=== PATIENT | female | born 1940 | race Caucasian/White ===

== ENCOUNTER 2020-08-22 15:01 | Emergency (ER) | payer OTHER, MEDICARE ==
--- NOTE | 2020-08-22 16:15 | RAD REPORT ---
EXAM DESCRIPTION: CT - Head Brain Wo Cont - 08/22/2020 3:55 pm CLINICAL HISTORY: Headache status post fall COMPARISON: None TECHNIQUE: Computed axial tomography of the head was obtained. IV contrast was not requested. All CT scans are performed using dose optimization technique as appropriate and may include automated exposure control or mA/KV adjustment according to patient size. FINDINGS: An intracranial bleed is not seen . The ventricles are normal in caliber. No extra-axial fluid collection is noted. The basilar tip is bulbous Mild low-density areas within periventricular, deep and subcortical white matter likely represent isc hemic changes secondary to small vessel disease. Fluid within the sinuses/ mastoids is not seen. IMPRESSION: No acute intracranial abnormality is seen. If patient's symptoms persist MRI of the bra in would be recommended.
[2020-08-22] MEDS ORDERED: LIDOCAINE 1% W/EPI 1:100,000 MDV 20 ML VIAL ONE (18:32)
--- NOTE | 2020-08-22 19:15 | ER ---
Nurse's Notes [facility] Name: Marva Hyde Age: 80 yrs Sex: Female : 1940 Arrival Date: 08/22/2020 Time: 15:07 Bed 26 Private MD: Diagnosis: Laceration without foreign body of other part of head-right forehead Presentation: 08/22 15:08 Chief complaint: Patient states: "I tripped and fell and hit my head on the sidewalk jd3 and my glasses cut me pretty good.". Coronavirus screen: At this time, the client does not indicate any symptoms associated with coronavirus-19. Ebola Screen: Patient negative for fever greater than or equal to 101.5 degrees Fahrenheit, and additional compatible Ebola Virus Disease symptoms. Initial Sepsis Screen: Does the patient meet any 2 criteria? No. Patient's initial sepsis screen is negative. Does the patient have a suspected source of infection? No. Patient's initial sepsis screen is negative. Risk Assessment: Do you want to hurt yourself or someone else? Patient reports no desire to harm self or others. Note no LOC, no blood thinners. Onset of symptoms was August 22, 2020. 15:08 Method Of Arrival: Wheelchair jd3 15:08 Acuity: ARNULFO 3 jd3 Triage Assessment: 08/23 19:00 General: Appears in no apparent distress. Behavior is calm. iw Historical: - Allergies: 08/22 15:12 No Known Allergies; jd3 - Home Meds: 15:12 Atenolol Oral [Active]; irbesartan oral oral [Active]; pravastatin oral oral [Active]; jd3 amlodipine oral [Active]; Gemfibrozil Oral [Active]; - PMHx: 15:12 Hypertension; jd3 - PSHx: 15:12 None; jd3 - Immunization history:: Adult Immunizations up to date, Last tetanus immunization: < 5 years ago. - Social history:: Smoking status: Patient denies any tobacco usage or history of. Screenin:35 Abuse screen: Denies threats or abuse. Denies injuries from another. Nutritional iw screening: No deficits noted. Tuberculosis screening: No symptoms or risk factors identified. Fall Risk None identified. Assessment: 19:00 General: Appears Behavior is calm, cooperative. Pain: Complains of pain in right iw frontal sinus. Neuro: Level of Consciousness is awake, alert, obeys commands, Oriented to person, place, situation. Respiratory: Respiratory effort is even, unlabored, Respiratory pattern is regular. Derm: Skin is fragile, is thin. Musculoskeletal: Range of motion: intact in all extremities. Injury Description: Laceration sustained to right frontal sinus. Vital Signs: 15:13 BP 162 / 90; Pulse 70; Resp 15 S; Temp 98.6(TE); Pulse Ox 98% on R/A; Weight 72.57 kg jd3 (R); Height 5 ft. 6 in. (167.64 cm) (R); Pain 7/10; 15:13 Body Mass Index 25.82 (72.57 kg, 167.64 cm) jd3 ED Course: 15:07 Patient arrived in ED. rg4 15:09 Triage completed. jd3 15:13 Arm band placed on. jd3 15:55 CT Head Brain wo Cont In Process Unspecified. EDMS 17:59 Yissel Martell RN is Primary Nurse. iw 17:59 Chris Daugherty PA is PHCP. cp 17:59 Chris Trujillo MD is Attending Physician. cp 17:59 PHCP role handed off by Chris Daugherty PA jmm 17:59 Russell Hobbs PA is PHCP. [facility] 18:00 Chris Daugherty PA is PHCP. cp Administered Medications: 19:00 Drug: Lidocaine-Epinephrine -1%: (1:100,000) 10 ml {Note: medication administered by tamara REIS preprocedure.} Volume: 20 ml; Route: Infiltration; Outcome: 19:14 Discharge ordered by MD. cp 19:39 Patient left the ED. Signatures: Dispatcher [employer] EDMS Russell Hobbs PA PA jmm Williams, Irene, RN RN Chris Daugherty PA PA cp Garcia, Rubi 4 Anthony Renee RN RN jd3
--- NOTE | 2020-08-22 19:15 | EDPHYS ---
Physician Documentation [facility] Name: Marva Hyde Age: 80 yrs Sex: Female : 1940 Arrival Date: 08/22/2020 Time: 15:07 Bed 26 Private MD: ED Physician Chris Trujillo HPI: 08/22 18:11 This 80 yrs old Female presents to ER via Wheelchair with complaints of Fall cp Injury. 18:11 Details of fall: The patient fell from an upright position, while walking. Onset: The cp symptoms/episode began/occurred today. Associated injuries: The patient sustained injury to the head, laceration, of the left forehead, tenderness. 18:11 Patient reports tetanus vaccination is UTD. No LOC, denies syncope, denies chest pain. cp Historical: - Allergies: 15:12 No Known Allergies; jd3 - Home Meds: 15:12 Atenolol Oral [Active]; irbesartan oral oral [Active]; pravastatin oral oral [Active]; jd3 amlodipine oral [Active]; Gemfibrozil Oral [Active]; - PMHx: 15:12 Hypertension; jd3 - PSHx: 15:12 None; jd3 - Immunization history:: Adult Immunizations up to date, Last tetanus immunization: < 5 years ago. - Social history:: Smoking status: Patient denies any tobacco usage or history of. ROS: 18:20 Constitutional: Negative for body aches, chills, fever, poor PO intake. cp 18:20 Eyes: Negative for injury, pain, redness, and discharge. cp 18:20 Cardiovascular: Negative for chest pain. 18:20 Respiratory: Negative for cough, shortness of breath, wheezing. 18:20 Abdomen/GI: Negative for abdominal pain, nausea, vomiting, and diarrhea. 18:20 Back: Negative for pain at rest, pain with movement. 18:20 Skin: Positive for laceration(s), of the right forehead. 18:20 Neuro: Negative for altered mental status, dizziness, headache, loss of consciousness, syncope, weakness. 18:20 All other systems are negative. Exam: 18:25 Constitutional: The patient appears in no acute distress, alert, awake, cp non-diaphoretic, well developed, well nourished. 18:25 Head/face: Noted is a laceration(s), that is deep, of the right forehead, Sinus cp tenderness, that is mild, is located over the right frontal sinus. 18:25 Eyes: Periorbital structures: appear normal, Pupils: equal, round, and reactive to cp light and accomodation, Extraocular movements: intact throughout, Conjunctiva: normal, no exudate, no injection, Lids and lashes: appear normal, bilaterally. 18:25 ENT: External ear(s): are unremarkable, Ear canal(s): are normal, clear, TM's: dullness, bilaterally, Nose: is normal, Mouth: Lips: moist, Oral mucosa: moist, Posterior pharynx: Airway: no evidence of obstruction, patent. 18:25 Neck: C-spine: vertebral tenderness, is not appreciated, crepitus, is not appreciated, ROM/movement: is normal, is supple, without pain, no range of motions limitations. 18:25 Chest/axilla: Inspection: normal, Palpation: is normal, no crepitus, no tenderness. Vital Signs: 15:13 BP 162 / 90; Pulse 70; Resp 15 S; Temp 98.6(TE); Pulse Ox 98% on R/A; Weight 72.57 kg jd3 (R); Height 5 ft. 6 in. (167.64 cm) (R); Pain 7/10; 15:13 Body Mass Index 25.82 (72.57 kg, 167.64 cm) jd3 Laceration: 19:12 Wound Repair of 4cm ( 1.6in ) subcutaneous laceration to right forehead. Linear cp shaped.. Distal neuro/vascular/tendon intact. Anesthesia: Local anesthetic administered with 5 mls of 1% lidocaine w/ Epi. Wound prep: Simple cleansing with hibiclenz by me, Wound irrigation by pr. Skin closed with 8 6-0 Prolene using simple sutures and sterile technique. Dressed with Bacitracin, 4x4's. Patient tolerated well. MDM: 18:03 Patient medically screened. cp 19:15 Data reviewed: vital signs, nurses notes, radiologic studies, CT scan, and as a result, cp I will discharge patient. 19:15 Counseling: I had a detailed discussion with the patient and/or guardian regarding: the cp historical points, exam findings, and any diagnostic results supporting the discharge/admit diagnosis, radiology results, to return to the emergency department if symptoms worsen or persist or if there are any questions or concerns that arise at home. Response to treatment: the patient's symptoms have markedly improved after treatment. Special discussion: Based on the patient's history, exam and DX evaluation, there is no indication for emergent intervention or inpatient TX. It is understood by the patient/guardian that if the SXs persist or worsen they need to return immediately for re-evaluation. 08/22 15:26 Order name: CT Head Brain wo Cont; Complete Time: 17:59 jd3 08/22 18:08 Interpretation: Reviewed. cp 08/22 18:09 Order name: Dressing - Wound; Complete Time: 19:17 cp 08/22 18:09 Order name: Gloves, Sterile; Complete Time: 19:17 cp 08/22 18:09 Order name: Setup Suture Tray; Complete Time: 19:17 cp 08/22 18:15 Order name: Wound Care: please clean and irrigate wound; Complete Time: 19:17 cp 08/22 19:12 Order name: Wound dressing; Complete Time: 19:17 cp Administered Medications: 19:00 Drug: Lidocaine-Epinephrine -1%: (1:100,000) 10 ml {Note: medication administered by tamara REIS preprocedure.} Volume: 20 ml; Route: Infiltration; Disposition: 08/22/20 19:14 Discharged to Home. Impression: Laceration without foreign body of other part of head - right forehead. - Condition is Stable. - Discharge Instructions: Head Injury, Adult, Facial Laceration, Sutured Wound Care. - Medication Reconciliation Form, Thank You Letter, Antibiotic Education, Prescription Opioid Use form. - Follow up: Private Physician; When: 1 week; Reason: Staple/Suture removal. - Problem is new. - Symptoms have improved. Addendum: 08/24/2020 07:00 Co-signature as Attending Physician, Chris Trujillo MD I agree with the assessment and c bello plan of care. Signatures: Dispatcher [employer] Chris Ball MD MD cha Mickail, Joel, PA PA jmm Williams, Irene RN Chris Feliciano PA PA cp Davies, Jonathon, RN RN jd3 Corrections: (The following items were deleted from the chart) 08/22 19:39 19:14 08/22/2020 19:14 Discharged to Home. Impression: Laceration without foreign body iw of other part of head - right forehead. Condition is Stable. Forms are Medication Reconciliation Form, Thank You Letter, Antibiotic Education, Prescription Opioid Use. Follow up: Private Physician; When: 1 week; Reason: Staple/Suture removal. Problem is new. Symptoms have improved. cp 08/23 15:36 08/22 18:25 Head/Face: Normocephalic, atraumatic. cp cp 08/23 18:04 08/22 18:25 Head/Face: Normocephalic, atraumatic. cp cp
[2020-08-22 19:50] VITALS: BP 162/90; TEMP 98.6; O2SAT 98
== END 2020-08-22 19:39 | disposition home or self-care (01) ==
LOC: ER 15:01
PROC: 0HQ1XZZ Repair Face Skin, External Approach (ICD-10-PCS; principal; 2020-08-22)
DX: S01.81XA Laceration without foreign body of other part of head, initial encounter (principal); W19.XXXA Unspecified fall, initial encounter; I10 Essential (primary) hypertension
CPT/HCPCS: 70450; 99283

== ENCOUNTER 2020-08-29 14:58 | Emergency (ER) | payer OTHER, MEDICARE ==
--- NOTE | 2020-08-29 15:53 | EDPHYS ---
Physician Documentation [facility] Name: Marva Hyde Age: 80 yrs Sex: Female : 1940 Arrival Date: 08/29/2020 Time: 14:59 Bed 11 Private MD: Chris Jordan HPI: 08/29 15:44 This 80 yrs old Female presents to ER via Ambulatory with complaints of fariba Suture Removal. 15:44 The patient has sutures on the outer aspect of right eyebrow. Previous treatment: The fariba patient was initially treated 7 day(s) ago. Sutures/mookie progress: The patient has no c/o's. The wound is well-healing with no redness, swelling, discharge, or dehiscence reported. The patient has not experienced similar symptoms in the past. Historical: - Allergies: 15:04 No Known Allergies; ll1 - PMHx: 15:04 Hypertension; ll1 - PSHx: 15:04 None; ll1 - Immunization history:: Last tetanus immunization: up to date Flu vaccine is up to date. - Social history:: Smoking status: Patient denies any tobacco usage or history of. - Family history:: not pertinent. ROS: 15:44 Constitutional: Negative for fever, chills, and weight loss, Eyes: Negative for injury, fariba pain, redness, and discharge, ENT: Negative for injury, pain, and discharge, Neck: Negative for injury, pain, and swelling, Cardiovascular: Negative for chest pain, palpitations, and edema, Respiratory: Negative for shortness of breath, cough, wheezing, and pleuritic chest pain, Abdomen/GI: Negative for abdominal pain, nausea, vomiting, diarrhea, and constipation, Back: Negative for injury and pain, MS/Extremity: Negative for injury and deformity, Neuro: Negative for headache, weakness, numbness, tingling, and seizure, Psych: Negative for depression, anxiety, suicide ideation, homicidal ideation, and hallucinations, Allergy/Immunology: Negative for hives, rash, and allergies, Endocrine: Negative for neck swelling, polydipsia, polyuria, polyphagia, and marked weight changes. 15:44 Skin: Positive for laceration(s). Exam: 15:44 Constitutional: This is a well developed, well nourished patient who is awake, alert, fariba and in no acute distress. Eyes: Pupils equal round and reactive to light, extra-ocular motions intact. Lids and lashes normal. Conjunctiva and sclera are non-icteric and not injected. Cornea within normal limits. Periorbital areas with no swelling, redness, or edema. ENT: Nares patent. No nasal discharge, no septal abnormalities noted. Tympanic membranes are normal and external auditory canals are clear. Oropharynx with no redness, swelling, or masses, exudates, or evidence of obstruction, uvula midline. Mucous membranes moist. Neck: Trachea midline, no thyromegaly or masses palpated, and no cervical lymphadenopathy. Supple, full range of motion without nuchal rigidity, or vertebral point tenderness. No Meningismus. Chest/axilla: Normal chest wall appearance and motion. Nontender with no deformity. No lesions are appreciated. Cardiovascular: Regular rate and rhythm with a normal S1 and S2. No gallops, murmurs, or rubs. Normal PMI, no JVD. No pulse deficits. Respiratory: Lungs have equal breath sounds bilaterally, clear to auscultation and percussion. No rales, rhonchi or wheezes noted. No increased work of breathing, no retractions or nasal flaring. Abdomen/GI: Soft, non-tender, with normal bowel sounds. No distension or tympany. No guarding or rebound. No evidence of tenderness throughout. Back: No spinal tenderness. No costovertebral tenderness. Full range of motion. Skin: Warm, dry with normal turgor. Normal color with no rashes, no lesions, and no evidence of cellulitis. MS/ Extremity: Pulses equal, no cyanosis. Neurovascular intact. Full, normal range of motion. Neuro: Awake and alert, GCS 15, oriented to person, place, time, and situation. Cranial nerves II-XII grossly intact. Motor strength 5/5 in all extremities. Sensory grossly intact. Cerebellar exam normal. Normal gait. Psych: Awake, alert, with orientation to person, place and time. Behavior, mood, and affect are within normal limits. 15:44 Head/face: Noted is a laceration(s). Vital Signs: 15:02 BP 172 / 97; Pulse 66; Resp 16; Temp 98.0; Pulse Ox 95% on R/A; Pain 0/10; ll1 MDM: 15:08 Patient medically screened. fariba 15:50 Data reviewed: vital signs, nurses notes. Data interpreted: monitoring tech: not fariba applicable for this patient encounter. rate is 6 beats/min, Pulse oximetry: on is 95 %. Counseling: I had a detailed discussion with the patient and/or guardian regarding: the historical points, exam findings, and any diagnostic results supporting the discharge/admit diagnosis, the need for outpatient follow up, for definitive care, a family practitioner. Administered Medications: No medications were administered Disposition: 08/29/20 15:52 Discharged to Home. Impression: Encounter for removal of sutures. - Condition is Stable. - Discharge Instructions: Suture Removal, Care After. - Medication Reconciliation Form, Thank You Letter, Antibiotic Education, Prescription Opioid Use form. - Follow up: Private Physician; When: 2 - 3 days; Reason: Recheck today's complaints, Continuance of care, Re-evaluation by your physician. - Problem is new. - Symptoms have improved. Signatures: Chris Trujillo MD MD cha Lewis, Lynsay RN RN ll1 Corrections: (The following items were deleted from the chart) 15:56 15:52 08/29/2020 15:52 Discharged to Home. Impression: Encounter for removal of ll1 sutures. Condition is Stable. Forms are Medication Reconciliation Form, Thank You Letter, Antibiotic Education, Prescription Opioid Use. Follow up: Private Physician; When: 2 - 3 days; Reason: Recheck today's complaints, Continuance of care, Re-evaluation by your physician. Problem is new. Symptoms have improved. fariba
--- NOTE | 2020-08-29 15:53 | ER ---
Nurse's Notes [facility] Name: Marva Hyde Age: 80 yrs Sex: Female : 1940 Arrival Date: 08/29/2020 Time: 14:59 Bed 11 Private MD: Diagnosis: Encounter for removal of sutures Presentation: 08/29 15:02 Chief complaint: Patient states: Needs sutures removed from R eyebrow, placed here on ll1 08/22. No fever, redness, pain. Coronavirus screen: Client denies travel out of the [place] in the last 14 days. At this time, the client does not indicate any symptoms associated with coronavirus-19. Ebola Screen: Patient denies travel to an Ebola-affected area in the 21 days before illness onset. Initial Sepsis Screen: Does the patient meet any 2 criteria? No. Patient's initial sepsis screen is negative. Does the patient have a suspected source of infection? Yes: Skin breakdown/wound. Risk Assessment: Do you want to hurt yourself or someone else? Patient reports no desire to harm self or others. Onset of symptoms was August 22, 2020. 15:02 Method Of Arrival: Ambulatory ll1 15:02 Acuity: ARNULFO 5 ll1 Historical: - Allergies: 15:04 No Known Allergies; ll1 - PMHx: 15:04 Hypertension; ll1 - PSHx: 15:04 None; ll1 - Immunization history:: Last tetanus immunization: up to date Flu vaccine is up to date. - Social history:: Smoking status: Patient denies any tobacco usage or history of. - Family history:: not pertinent. Screenin:36 Abuse screen: Denies threats or abuse. Denies injuries from another. Nutritional ss screening: No deficits noted. Tuberculosis screening: Never had TB. Fall Risk None identified. Assessment: 15:36 General: Appears in no apparent distress. comfortable, Behavior is calm, cooperative. ss Pain: Denies pain. Neuro: Level of Consciousness is awake, alert, obeys commands, Oriented to person, place, time, situation, Speech is normal. Cardiovascular: Capillary refill < 3 seconds is brisk in bilateral fingers. Respiratory: Airway is patent Respiratory effort is even, unlabored, Respiratory pattern is regular, symmetrical. GI: No signs and/or symptoms were reported involving the gastrointestinal system. Derm: Skin is intact, is healthy with good turgor, Skin is dry, Skin is pink, warm \T\ dry. normal. Musculoskeletal: Range of motion: intact in all extremities. Vital Signs: 15:02 BP 172 / 97; Pulse 66; Resp 16; Temp 98.0; Pulse Ox 95% on R/A; Pain 0/10; ll1 ED Course: 14:59 Patient arrived in ED. as 15:03 Triage completed. ll1 15:04 Arm band placed on. ll1 15:08 Chris Trujillo MD is Attending Physician. fariba 15:35 Kaylie Amador, JENN is Primary Nurse. ss 15:36 Patient has correct armband on for positive identification. Bed in low position. Call ss light in reach. 15:36 No provider procedures requiring assistance completed. Patient did not have IV access ss during this emergency room visit. Removal of Removed sutures from outer aspect of right eyebrow Suture site is well healed Patient tolerated well. Administered Medications: No medications were administered Outcome: 15:52 Discharge ordered by . fariba 15:56 Patient left the ED. ll1 Signatures: Chris Trujillo MD MD cha Martinez, Amelia as Smirch, Shelby, JENN RN Joshua Bee RN RN 1
[2020-08-29 17:22] VITALS: BP 172/97; TEMP 98; O2SAT 95
== END 2020-08-29 15:56 | disposition home or self-care (01) ==
LOC: ER 14:58
DX: Z48.02 Encounter for removal of sutures (principal)
CPT/HCPCS: 99281